=== PATIENT | male | born 1950 | race Caucasian/White ===

== ENCOUNTER → 2018-07-28 | Outpatient (CLI) | payer MEDICARE, OTHER | END | disposition home or self-care (01) | LOC: RADPV 13:54 | PROVIDERS: ATTEND Legal Medicine | DX: I82.401 Acute embolism and thrombosis of unspecified deep veins of right lower extremity (principal); R60.0 Localized edema | CPT/HCPCS: 93971 ==

== ENCOUNTER 2018-08-29 19:22 | Emergency (ER) | payer MEDICARE ==
[~2018-08-29] VITALS: Ht 188 cm; Wt 145.4 kg
[2018-08-29] MEDS ORDERED: METF-960 PO (19:49)
[2018-08-29] MEDS ORDERED: TELM40 PO (19:49)
[2018-08-29] MEDS ORDERED: [UNRECOGNIZED DRUG - REMARK] PO (19:49)
[2018-08-29] MEDS ORDERED: INSNOV SQ (19:49)
[2018-08-29] MEDS ORDERED: INSLAN SQ (19:49)
[2018-08-29 19:50] LABS: GLUCOSE,POINT OF CARE 191 MG/DL (70-110)
[2018-08-29 21:43] VITALS: BP 168/89
== END 2018-08-29 21:47 | disposition home or self-care (01) ==
LOC: EMS 19:22
DX: J06.9 Acute upper respiratory infection, unspecified (principal); E11.9 Type 2 diabetes mellitus without complications; I10 Essential (primary) hypertension; E66.9 Obesity, unspecified; Z68.41 Body mass index [BMI] 40.0-44.9, adult; Z79.4 Long term (current) use of insulin; Z79.84 Long term (current) use of oral hypoglycemic drugs; Z88.1 Allergy status to other antibiotic agents

== ENCOUNTER 2019-09-29 14:28 | Emergency (ER) | payer MEDICARE, OTHER ==
[~2019-09-29] VITALS: Ht 188 cm; Wt 104.5 kg
[~2019-09-29 14:28] MED LIST: INSLAN SQ; INSNOV SQ; METF-960 PO; TELM40 PO; [UNRECOGNIZED DRUG - REMARK] PO
[2019-09-29] MEDS ORDERED: CARV25TA32 PO (14:43)
[2019-09-29] MEDS ORDERED: CLOP75TA32 PO (14:43)
[2019-09-29] MEDS ORDERED: ATOR-2 PO (14:43)
[2019-09-29 14:45] LABS: GLUCOSE,POINT OF CARE 176 MG/DL (70-110)
[2019-09-29 15:52] VITALS: BP 135/92
== END 2019-09-29 16:24 | disposition home or self-care (01) ==
LOC: EMS 14:28
DX: I10 Essential (primary) hypertension (principal); E11.9 Type 2 diabetes mellitus without complications; E66.9 Obesity, unspecified; Z86.73 Personal history of transient ischemic attack (TIA), and cerebral infarction without residual deficits; Z79.899 Other long term (current) drug therapy; Z79.4 Long term (current) use of insulin; Z98.890 Other specified postprocedural states; Z79.84 Long term (current) use of oral hypoglycemic drugs; Z88.1 Allergy status to other antibiotic agents; Z68.29 Body mass index [BMI] 29.0-29.9, adult

== ENCOUNTER → 2021-02-17 | Outpatient (CLI) | payer MEDICARE, OTHER ==
[~2021-02-17] MED LIST changes: +ATOR-2 PO; +CARV25TA32 PO; +CLOP75TA32 PO; -[UNRECOGNIZED DRUG - REMARK] PO
== END | disposition home or self-care (01) ==
LOC: RADPV 07:39
PROVIDERS: ATTEND Legal Medicine
DX: M47.812 Spondylosis without myelopathy or radiculopathy, cervical region (principal); M25.78 Osteophyte, vertebrae
CPT/HCPCS: 72040

== ENCOUNTER 2024-06-09 09:29 | Inpatient (IN) | payer MEDICARE, OTHER ==
[~2024-06-09] VITALS: Ht 185.4 cm; Wt 149.9 kg
[~2024-06-09 09:29] MED LIST changes: +AMLO-257 PO; +APIX5TAB PO; +ASPI-1450 PO; -CARV25TA32 PO; +CARV6 PO; -CLOP75TA32 PO; +FAMO20 PO; +INSU100V SQ; -METF-960 PO; +Multivitamins/Minerals PO; -TELM40 PO
[2024-06-09] MEDS: MORPHINE SULFATE 2 MG/ML SYRINGE IVP ONE (10:17)
[2024-06-09 10:22] LABS: BASOPHILS % (AUTO) 0.6 % (0.0-2.0); EOSINOPHILS % (AUTO) 2.2 % (1.0-6.0); HEMATOCRIT 38.5 % (41-53); HEMOGLOBIN 12.4 g/dL (13.5-17.5); LYMPHOCYTES # (AUTO) 1.7 K/uL (1.0-4.8); LYMPHOCYTES % (AUTO) 36.9 % (22.0-44.0); MEAN CORPUSCULAR HEMOGLOBIN 25.2 pg (26.0-34.0); MEAN CORPUSCULAR HGB CONC 32.2 G/dL (31.0-37.0); MEAN CORPUSCULAR VOLUME 78 fL (80-100); MONOCYTES # (AUTO) 0.4 K/uL (0.1-1.0); MONOCYTES % (AUTO) 8.9 % (2.0-9.0); NEUTROPHILS # (AUTO) 2.3 K/uL (1.8-7.7); NEUTROPHILS % (AUTO) 51.4 % (40.0-70.0); PLATELET COUNT (AUTO) 163 K/uL (150-450); RED BLOOD CELL COUNT(AUTO) 4.91 MIL/uL (4.50-5.90); RED CELL DISTRIBUTION WIDTH 16.8 % (11.5-14.5); WHITE BLOOD COUNT (AUTO) 4.5 K/uL (4.5-11.0)
[2024-06-09 10:31] LABS: COVID AG,FIA SOURCE NASAL SWAB
[2024-06-09 10:38] LABS: CREATININE 1.27 mg/dL (0.60-1.30); POTASSIUM 3.9 mmol/L (3.5-5.1)
[2024-06-09 10:44] LABS: BILIRUBIN,TOTAL 1.1 mg/dL (0.1-1.0); TOTAL PROTEIN, SERUM 5.9 g/dL (6.4-8.2)
[2024-06-09] MEDS: ONDANSETRON HCL 4 MG/2 ML VIAL IVP ONE (10:45)
[2024-06-09 10:52] LABS: TROPONIN I-HIGH SENSITIVITY 93 ng/L (<76)
[2024-06-09 11:17] LABS: SARS-COV2 (COVID) ANTIGEN,FIA Negative (Negative)
[2024-06-09] MEDS: FUROSEMIDE 40 MG/4 ML VIAL IVP ONE (11:44)
[2024-06-09 11:45] LABS: TROPONIN I-HIGH SENSITIVITY 88 ng/L (<76)
[2024-06-09] MEDS ORDERED: DEXTROSE 50%-WATER 25 GM/50 ML SYRINGE IVP PRN (12:00)
[2024-06-09] MEDS ORDERED: ACETAMINOPHEN 325 MG TABLET PO PRN (12:00)
[2024-06-09] MEDS ORDERED: ALBUTEROL SULFATE 2.5 MG/0.5 ML NEB SOLUTION NEB PRN (12:00)
[2024-06-09] MEDS ORDERED: OxyCODONE HCL/ACETAMINOPHEN 5-325 MG TABLET PO PRN (12:00)
[2024-06-09] MEDS ORDERED: MAGNESIUM HYDROXIDE SUSPENSION 30 ML UDCUP PO PRN (12:00)
[2024-06-09 12:21] LABS: APPEARANCE,URINE CLEAR (CLEAR); BILIRUBIN,URINE NEGATIVE (NEGATIVE); COLOR,URINE LIGHT YELLOW (YELLOW); GLUCOSE, URINE (UA) NEGATIVE (NEGATIVE); KETONES,URINE NEGATIVE (NEGATIVE); LEUKOCYTE ESTERASE ,URINE NEGATIVE (NEGATIVE); NITRATE,URINE NEGATIVE (NEGATIVE); OCCULT BLOOD,URINE NEGATIVE (NEGATIVE); PH,URINE 6.5 (5.0-8.0); PROTEIN,URINE NEGATIVE (NEGATIVE); UROBILINOGEN,URINE <=1.0 mg/dL (<=1.0)
[2024-06-09 15:57] VITALS: BP 148/81; PULSE 70; RESP 20; TEMP 98.3; O2SAT 95
[2024-06-09 16:00] VITALS: BP 148/81; PULSE 70; RESP 20; TEMP 98.3; O2SAT 94
[2024-06-09] MEDS: INSULIN LISPRO 100 UNITS/ML SQ PRN (17:16)
[2024-06-09 17:51] LABS: GLUCOMETER DEV NAME(LOC) ICUN.5; GLUCOSE,POINT OF CARE 174 MG/DL (70-110)
[2024-06-09 20:00] VITALS: BP 152/71; PULSE 80; RESP 20; TEMP 97.7; O2SAT 96
[2024-06-09] MEDS: FUROSEMIDE 20 MG/2 ML VIAL IVP SCH (21:03)
[2024-06-09] MEDS: CARVEDILOL 6.25 MG TABLET PO SCH (21:03)
[2024-06-09] MEDS: DOCUSATE SODIUM 100 MG CAPSULE PO SCH (21:03)
[2024-06-09] MEDS: APIXABAN 5 MG TABLET PO SCH (21:03)
[2024-06-09] MEDS: INSULIN GLARGINE,HUM.REC.ANLOG 100 UNITS/ML SQ SCH (21:04)
[2024-06-10] VITALS (7 sets, daily range): BP systolic 135–153; BP diastolic 68–86; PULSE 73–87; RESP 18–20; TEMP 97.2–98.5; O2SAT 95–97
[2024-06-10 00:25] LABS: GLUCOMETER DEV NAME(LOC) ICUN.5; GLUCOSE,POINT OF CARE 185 MG/DL (70-110)
[2024-06-10 06:10] LABS: GLUCOMETER DEV NAME(LOC) ICUN.5; GLUCOSE,POINT OF CARE 152 MG/DL (70-110)
[2024-06-10 06:13] LABS: BASOPHILS % (AUTO) 0.1 % (0.0-2.0); EOSINOPHILS % (AUTO) 1.7 % (1.0-6.0); HEMATOCRIT 40.6 % (41-53); HEMOGLOBIN 13.1 g/dL (13.5-17.5); LYMPHOCYTES # (AUTO) 2.1 K/uL (1.0-4.8); LYMPHOCYTES % (AUTO) 37.4 % (22.0-44.0); MEAN CORPUSCULAR HEMOGLOBIN 25.4 pg (26.0-34.0); MEAN CORPUSCULAR HGB CONC 32.3 G/dL (31.0-37.0); MEAN CORPUSCULAR VOLUME 79 fL (80-100); MONOCYTES # (AUTO) 0.5 K/uL (0.1-1.0); MONOCYTES % (AUTO) 8.9 % (2.0-9.0); NEUTROPHILS # (AUTO) 2.9 K/uL (1.8-7.7); NEUTROPHILS % (AUTO) 51.9 % (40.0-70.0); PLATELET COUNT (AUTO) 161 K/uL (150-450); RED BLOOD CELL COUNT(AUTO) 5.15 MIL/uL (4.50-5.90); RED CELL DISTRIBUTION WIDTH 16.5 % (11.5-14.5); WHITE BLOOD COUNT (AUTO) 5.6 K/uL (4.5-11.0)
[2024-06-10 06:29] LABS: ANION GAP 8 mmol/L (8-16); CALCIUM, TOTAL 8.8 mg/dL (8.8-10.5); CARBON DIOXIDE 32 mmol/L (22-29); CHLORIDE 102 mmol/L (98-107); CREATININE 1.07 mg/dL (0.60-1.30); GLOMERULAR FILTR. RATE CALC > 60 mL/min (>60); GLUCOSE,RANDOM 162 mg/dL (70-110); POTASSIUM 3.8 mmol/L (3.5-5.1); SODIUM SERUM 142 mmol/L (136-145); UREA NITROGEN, BLOOD 14 mg/dL (7-18)
[2024-06-10 06:31] LABS: TROPONIN I-HIGH SENSITIVITY 95 ng/L (<76)
[2024-06-10] MEDS: ATORVASTATIN CALCIUM 40 MG TABLET PO SCH (08:14)
[2024-06-10] MEDS: EMPAGLIFLOZIN 10 MG TABLET PO SCH (08:15)
[2024-06-10] MEDS: FAMOTIDINE 20 MG TABLET PO SCH (08:15)
[2024-06-10] MEDS: SPIRONOLACTONE 25 MG TABLET PO SCH (11:59)
[2024-06-10 12:15] LABS: GLUCOMETER DEV NAME(LOC) ICU.S6; GLUCOSE,POINT OF CARE 194 MG/DL (70-110)
[2024-06-10] MEDS: FUROSEMIDE 40 MG/4 ML VIAL IVP SCH (20:34)
[2024-06-10] MEDS: CARVEDILOL 12.5 MG TABLET PO SCH (20:48)
[2024-06-11 04:44] VITALS: BP 133/74; PULSE 85; RESP 20; TEMP 97.7; O2SAT 97
[2024-06-11 06:30] LABS: BASOPHILS % (AUTO) 0.3 % (0.0-2.0); EOSINOPHILS % (AUTO) 1.4 % (1.0-6.0); HEMATOCRIT 39.7 % (41-53); HEMOGLOBIN 12.9 g/dL (13.5-17.5); LYMPHOCYTES # (AUTO) 2.5 K/uL (1.0-4.8); LYMPHOCYTES % (AUTO) 41.6 % (22.0-44.0); MEAN CORPUSCULAR HEMOGLOBIN 25.5 pg (26.0-34.0); MEAN CORPUSCULAR HGB CONC 32.4 G/dL (31.0-37.0); MEAN CORPUSCULAR VOLUME 79 fL (80-100); MONOCYTES # (AUTO) 0.5 K/uL (0.1-1.0); NEUTROPHILS # (AUTO) 2.9 K/uL (1.8-7.7); NEUTROPHILS % (AUTO) 47.7 % (40.0-70.0); PLATELET COUNT (AUTO) 168 K/uL (150-450); RED BLOOD CELL COUNT(AUTO) 5.04 MIL/uL (4.50-5.90); RED CELL DISTRIBUTION WIDTH 16.3 % (11.5-14.5)
[2024-06-11 06:41] LABS: POTASSIUM 3.6 mmol/L (3.5-5.1)
[2024-06-11 07:17] LABS: CALCIUM, TOTAL 8.7 mg/dL (8.8-10.5); CREATININE 1.3 mg/dL (0.60-1.30)
[2024-06-11 07:19] VITALS: BP 112/57; PULSE 80; RESP 19; TEMP 98.3; O2SAT 93
[2024-06-11 08:40] VITALS: O2SAT 98
[2024-06-11] MEDS: FUROSEMIDE 20 MG/2 ML VIAL IVP SCH (09:00)
[2024-06-11 11:11] VITALS: BP 119/75; PULSE 88; RESP 20; O2SAT 97
[2024-06-11 15:34] VITALS: BP 147/65; PULSE 85; RESP 18; TEMP 98.1; O2SAT 98
[2024-06-11] MEDS ORDERED: TELM80TA10 PO (15:43)
[2024-06-11] MEDS ORDERED: CARV25TA32 PO (15:43)
[2024-06-11] MEDS ORDERED: ROSU40TA88 PO (15:43)
[2024-06-11] MEDS ORDERED: CLOP75TA32 PO (15:43)
[2024-06-11] MEDS ORDERED: FURO20TA4 PO (15:43)
[2024-06-11] MEDS ORDERED: AMLO10TA55 PO (15:43)
[2024-06-11] MEDS ORDERED: HYDR50TA37 PO (15:43)
[2024-06-11] MEDS ORDERED: CLON0.1T2 PO (15:43)
[2024-06-11] MEDS ORDERED: MULT-248 PO (15:43)
[2024-06-11] MEDS ORDERED: OMEP20CA12 PO (15:43)
[2024-06-11] MEDS: POTASSIUM CHLORIDE 20 MEQ ER TABLET PO ONE (17:00)
[2024-06-11 20:00] VITALS: BP 130/69; PULSE 88; RESP 19; TEMP 97.7; O2SAT 97
[2024-06-12] VITALS: BP 133/66; PULSE 86; RESP 18; TEMP 98.1; O2SAT 96
[2024-06-12 05:30] VITALS: BP 130/70; PULSE 80; RESP 18; TEMP 97.8; O2SAT 96
[2024-06-12 07:36] LABS: GLUCOMETER DEV NAME(LOC) 5N.1D; GLUCOSE,POINT OF CARE 167 MG/DL (70-110)
[2024-06-12 07:54] VITALS: BP 135/73; PULSE 84; RESP 18; TEMP 98.1; O2SAT 95
[2024-06-12 08:11] LABS: BASOPHILS % (AUTO) 0.4 % (0.0-2.0); HEMATOCRIT 39.8 % (41-53); LYMPHOCYTES # (AUTO) 2.4 K/uL (1.0-4.8); MEAN CORPUSCULAR HEMOGLOBIN 25.5 pg (26.0-34.0); MEAN CORPUSCULAR HGB CONC 32.5 G/dL (31.0-37.0); MEAN CORPUSCULAR VOLUME 79 fL (80-100); MONOCYTES # (AUTO) 0.6 K/uL (0.1-1.0); MONOCYTES % (AUTO) 10.2 % (2.0-9.0); NEUTROPHILS # (AUTO) 2.5 K/uL (1.8-7.7); NEUTROPHILS % (AUTO) 44.4 % (40.0-70.0); PLATELET COUNT (AUTO) 163 K/uL (150-450); RED BLOOD CELL COUNT(AUTO) 5.07 MIL/uL (4.50-5.90); RED CELL DISTRIBUTION WIDTH 16.7 % (11.5-14.5); WHITE BLOOD COUNT (AUTO) 5.6 K/uL (4.5-11.0)
[2024-06-12 08:27] LABS: ANION GAP 8 mmol/L (8-16); CALCIUM, TOTAL 8.8 mg/dL (8.8-10.5); CARBON DIOXIDE 32 mmol/L (22-29); CHLORIDE 101 mmol/L (98-107); CREATININE 1.16 mg/dL (0.60-1.30); GLOMERULAR FILTR. RATE CALC > 60 mL/min (>60); GLUCOSE,RANDOM 189 mg/dL (70-110); POTASSIUM 3.6 mmol/L (3.5-5.1); SODIUM SERUM 141 mmol/L (136-145); UREA NITROGEN, BLOOD 17 mg/dL (7-18)
[2024-06-12 11:13] VITALS: BP 133/69; PULSE 85; RESP 18; TEMP 98.2; O2SAT 93
[2024-06-12] MEDS ORDERED: SPIR-37 PO (11:18)
[2024-06-12] MEDS ORDERED: EMPA10TA3 PO (11:19)
== END 2024-06-12 13:10 | disposition home or self-care (01) | DRG 291 ==
LOC: EMS 09:29 → EDH 12:09 → ICU 15:25 → 5S 06-10 12:15
PROVIDERS: ADMIT Internal Medicine; ATTEND Internal Medicine
DX: I11.0 Hypertensive heart disease with heart failure (principal); I50.33 Acute on chronic diastolic (congestive) heart failure; J96.01 Acute respiratory failure with hypoxia; E44.0 Moderate protein-calorie malnutrition; I48.20 Chronic atrial fibrillation, unspecified; Z68.41 Body mass index [BMI] 40.0-44.9, adult; E11.9 Type 2 diabetes mellitus without complications; Z20.822 Contact with and (suspected) exposure to COVID-19; G47.30 Sleep apnea, unspecified; E66.01 Morbid (severe) obesity due to excess calories; G47.33 Obstructive sleep apnea (adult) (pediatric); Z79.4 Long term (current) use of insulin; Z86.73 Personal history of transient ischemic attack (TIA), and cerebral infarction without residual deficits; Z88.1 Allergy status to other antibiotic agents; Z79.899 Other long term (current) drug therapy
CPT/HCPCS: 71045; 74176; 80048; 80053; 81003; 82962; 83690; 83880; 84484; 85025; 87081; 87481; 93005; 93306; 99285; J1815; J1940; J2270; J2405; 36415-L1; 36415-TC

== ENCOUNTER 2024-11-08 16:08 | Emergency (ER) | payer MEDICARE, OTHER ==
[~2024-11-08] VITALS: Ht 167.6 cm; Wt 150.0 kg
[~2024-11-08 16:08] MED LIST changes: -AMLO-257 PO; -ASPI-1450 PO; -ATOR-2 PO; +CARV25TA32 PO; -CARV6 PO; +EMPA10TA3 PO; -FAMO20 PO; +FURO20TA4 PO; -INSU100V SQ; +MULT-248 PO; -Multivitamins/Minerals PO; +OMEP20CA12 PO; +ROSU40TA88 PO; +SPIR-37 PO; +TELM80TA10 PO
[2024-11-08 16:17] VITALS: BP 154/95; PULSE 86; RESP 18; TEMP 97.9; O2SAT 99
[2024-11-08] MEDS ORDERED: CARB-223 AU (18:56)
== END 2024-11-08 19:02 | disposition home or self-care (01) ==
LOC: EMS 16:08
DX: H61.23 Impacted cerumen, bilateral (principal); E11.9 Type 2 diabetes mellitus without complications; I10 Essential (primary) hypertension; E78.00 Pure hypercholesterolemia, unspecified; Z88.1 Allergy status to other antibiotic agents; Z79.01 Long term (current) use of anticoagulants; Z79.899 Other long term (current) drug therapy
CPT/HCPCS: 99282; Z7502